=== PATIENT | male | born 1960 | race Caucasian/White ===

== ENCOUNTER 2025-01-18 20:29 | Inpatient (IN) | payer BC ==
[2025-01-18 21:34] VITALS: BMI 21.6
[2025-01-18] MEDS ORDERED: ONDANSETRON 4 MG/2 ML VIAL IV PRN (22:03)
[2025-01-18] MEDS ORDERED: ACETAMINOPHEN 325 MG TABLET PO PRN (22:03)
--- NOTE | 2025-01-18 22:03 | P.HP ---
Certification for Inpatient Patient admitted to: Inpatient With expected LOS: >2 Midnights Patient will require the following post-hospital care: None Practitioner: I am a practitioner with admitting privileges, knowledge of patient current condition, hospital course, and medical plan of care. Services: Services provided to patient in accordance with Admission requirements found in Title 42 Section 412.3 of the Code of Federal Regulations <Nomi Michele - Last Filed: 01/19/25 08:20> Patient History Date of Service: 01/18/25 Reason for admission: Acute appendicitis History of Present Illness: Patient is a pleasant [id number] male with past medical history of essential hypertension, BPH, hypercholesterolemia, transferred from [facility] with acute appendicitis, and the plan is to have surgery in the morning to be done by . Patient states he woke up about 5:30 in the morning and went to work, and states around 9:30 AM he started having severe abdominal pain located mostly right lower quadrant of his abdomen. He states he went home around 1:30 p.m., states the pain progressively worsened which he describes as sharp, constant, with the pain scale 10/10. States since the pain was not getting relief, he then went to the ER. Patient denies of any fever, chills, chest pain, shortness of breath. Dr. Davis was consulted and notified, the plan is to have surgery in the morning. Patient in no acute distress this time. - Past Medical/Surgical History -: Essential hypertension. -: BPH. -: Hypercholesteremia. -: Bilateral rotator cuff repair. -: Laminectomy. - Family History Mother -: Heart disease Father -: Hypertension, Stroke - Social History Smoking Status: Current every day smoker (Patient states he deep snuff) Alcohol use: Yes CD- Drugs: No Caffeine use: No Place of Residence: Home <Nomi Michele - Last Filed: 01/19/25 08:20> Date of Service: 01/18/25 <Luis Enrique Black - Last Filed: 01/20/25 00:49> Allergies lactated Ringers Allergy (Unknown, Uncoded 01/18/25 21:32) Hives Home Medications: Aspirin 81 mg PO DAILY 01/19/25 Losartan Potassium 1 tab PO DAILY 01/19/25 Rosuvastatin [Crestor*] 1 tab PO DAILY 01/19/25 Tamsulosin [Flomax*] 1 cap PO BEDTIME 01/19/25 tadalafiL [Cialis] 1 tab PO DAILY 01/19/25 Review of Systems 10-point ROS is otherwise unremarkable Gastrointestinal: Nausea, Vomiting, Abdominal Pain <Nomi Michele - Last Filed: 01/19/25 08:20> Physical Examination - Vital Signs Temperature: 98 F Blood Pressure: 159/72 Pulse: 67 Respirations: 18 Pulse Ox (%): 97 - Physical Exam General: Alert, Oriented x3, Cooperative, Cachectic HEENT: Atraumatic, Normocephalic, PERRLA, Mucous membr. moist/pink, Sclerae nonicteric Neck: Supple, 2+ carotid pulse no bruit, No LAD, Without JVD or thyroid abnormality Respiratory: Clear to auscultation bilaterally, Normal air movement Cardiovascular: No edema, Normal pulses, Regular rate/rhythm, Normal S1 S2, Abnormal S3, No gallops, No rubs, No murmurs Capillary refill: <2 Seconds Gastrointestinal: Normal bowel sounds, No ascites, No masses, Tenderness, Guarding Musculoskeletal: No clubbing, No swelling, No contractures, No erythema, No tenderness, No warmth Integumentary: No rashes, No breakdown, No significant lesion, No tenderness/swelling, No erythema, No warmth, No cyanosis Neurological: Normal gait, Normal speech, Normal strength at 5/5 x4 extr, Normal tone, Sensation intact, Cranial nerves 3-12 intact, Normal reflexes 2+, Normal affect Lymphatics: No axilla or inguinal lymphadenopathy Urinary: Other (BPH.) <Nomi Michele - Last Filed: 01/19/25 08:20> - Studies Laboratory Data (last 24 hrs) 01/19/25 01/19/25 05:02 05:02 WBC 7.20 Hgb 13.1 L Hct 38.4 L Plt Count 238 Sodium 135 L Potassium 4.4 BUN 7 Creatinine 0.93 Glucose 127 H Total Bilirubin 0.9 AST 17 ALT 25 Alkaline Phosphatase 37 L <LuisE nrique Black - Last Filed: 01/20/25 00:49> Male Exam - Male Exam Inguinal exam: No hernias <Nomi Michele - Last Filed: 01/19/25 08:20> Assessment and Plan - Plan Patient admitted with acute appendicitis, scheduled for surgery in a.m. (1)Acute appendicitis. -N.p.o. after midnight. -Zosyn 3.375 mg IV every 8 hours. -Zofran 4 mg as needed every 6 hours. -D5 NS at 100 mL/ hr - Morphine 4 mg IV as needed every 4 hours. -Consulr Dr. Davis. (2) DVT prophylaxis. -SCD at this time since patient is scheduled for surgery in the morning. (3) chronic BPH. -Continue tamsulosin 0.4 mg p.o. daily. (4)chronic essential hypertension. -Patient blood pressure medication to be resumed after reconciliation is complete. (4)Explained the entire treatment plan to the patient, solicit questions answered voiced understanding. Discharge Plan: Home Plan to discharge in: 72 Hours - Advance Directives Does patient have a Living Will: No Does patient have a Durable POA for Healthcare: No - Code Status/Comfort Care Code Status Assessed: Yes Code Status: Full Code Critical Care: No Time Spent Managing Pts Care (In Minutes): 55 <Nomi Michele - Last Filed: 01/19/25 08:20> Date of Service: 01/18/25 Patient was seen and examined. Events of the last 24 hours have been noted. Spoke with with CHINYERE regarding patient's clinical picture after evaluating and examining the patient independently. I performed a substantial part of the MDM during this patient's care today. I personally made or approved the documented management plan and acknowledge its risk of complications. I agree with the findings and documentation provided in the CHINYERE's notes. Patient is scheduled for appendectomy and anticipate discharge postoperatively per general surgery recommendation. <Luis Enrique Black - Last Filed: 01/20/25 00:49>
[2025-01-18] MEDS: MORPHINE 4 MG/ML SYR IV ONE (22:09)
[2025-01-18] MEDS: TAMSULOSIN 0.4 MG SR CAP PO SCH (22:36)
[2025-01-18] MEDS: D5 0.45 NS 1,000 ML IV SCH (22:56)
[2025-01-19] MEDS: PIPER TAZO 3.375 GM in NA CHLORIDE 0.9% 100 ML IV SCH (00:48)
[2025-01-19] MEDS: MORPHINE 4 MG/ML SYR IV PRN (02:35)
[2025-01-19 05:18] LABS: Absolute Lymphocytes (CBC) 1.5 K/uL (0.7-4.9); Hematocrit 38.4 % (39.6-49.0); Hemoglobin 13.1 g/dL (13.6-17.9); MCH 32.2 pg (27.0-35.0); MCHC 34.2 g/dL (32.0-36.0); MCV 94.3 fL (80-100); MPV 6.9 fL (7.6-11.3); Nucleated RBC Absolute Count 0.0 (0-0); Nucleated Red Blood Cells % 0.0 % (0-0); RBC Red Blood Cell Count 4.07 M/uL (4.33-5.43); White Blood Count 7.20 thou/uL (4.3-10.9)
[2025-01-19 05:36] LABS: ALT/SGPT 25.0 U/L (16-61); AST/SGOT 17.0 U/L (15-37); Albumin 3.5 g/dL (3.4-5.0); Albumin/Globulin Ratio 1.4 (1.1-1.8); Alkaline Phosphatase 37.0 U/L (45-117); Anion Gap 7.4 mEq/L (5.0-15.0); BUN Blood Urea Nitrogen 7.0 mg/dL (7-18); Globulin 2.5 g/dL (2.3-3.5); Glucose Level 127.0 mg/dL (74-106); Potassium 4.4 mEq/L (3.5-5.1)
[2025-01-19] MEDS: NA CHLORIDE 0.9% 1,000 ML ONE (06:10)
[2025-01-19] MEDS ORDERED: MIDAZOLAM HCL 2 MG/2 ML INJ ONE (06:21)
[2025-01-19] MEDS ORDERED: ONDANSETRON 4 MG/2 ML VIAL ONE (06:21)
[2025-01-19] MEDS ORDERED: ROCURONIUM 50 MG/5 ML VIAL IV ONE (06:21)
[2025-01-19] MEDS ORDERED: LIDOCAINE 1% MPF 5 ML VIAL ONE (06:21)
[2025-01-19] MEDS ORDERED: FENTANYL CITR 100 MCG/2 ML ONE (06:21)
--- NOTE | 2025-01-19 06:22 | P.CNS ---
Date of Consult: 01/19/25 Reason for consult: Abdominal pain History of present illness: Patient is a 64-year-old gentleman who presents to us with approximately 1 day history of diffuse abdominal pain localizing to the right lower quadrant. Patient had 3 episodes of diarrhea at the onset. Patient denies any sore throat, runny nose, cough, headaches or dizziness, no chest pain no fever chills. Pain is constant in nature. Review of systems: Otherwise unremarkable Past medical history: Hypertension Past surgical history: Shoulder surgery Allergies: Lactated Ringer Social history: Patient dips tobacco and drinks occasionally Family history: Noncontributory Vital signs: Stable, afebrile Physical exam: Awake, alert and oriented x 3 Head and neck exam: No neck masses, no JVD, throat clear and neck supple Chest: Clear Heart: S1-S2 Abdomen: Soft, nondistended, positive bowel sound, right lower quadrant tenderness with rebound Extremity: Neurovascular intact Neuro: Nonfocal Diagnostic data: Laboratory data and CAT scan reviewed Assessment: Acute appendicitis Plan/recommendation: Admit, n.p.o., IV fluids, IV antibiotics and to the OR for laparoscopic appendectomy possible open. Patient understands risk, benefits and alternatives and agrees to procedure. CC:
[2025-01-19] MEDS ORDERED: EPHEDRINE SULF 50 MG/ML VIAL ONE (06:43)
[2025-01-19] MEDS: BUPIVACAINE 0.5% PF 10 ML VIAL ONE (06:55)
[2025-01-19] MEDS ORDERED: Mastisol Adhesive Liq ONE (07:04)
[2025-01-19] MEDS ORDERED: NEOSTIGMINE 1 MG/ML -10 ML VIAL ONE (07:10)
[2025-01-19] MEDS ORDERED: GLYCOPYRROLATE 0.2 MG/ML SYR ONE ×2 (07:10→07:18)
--- NOTE | 2025-01-19 07:42 | P.OP ---
Date of Service: 01/19/25 Preop diagnosis: Acute appendicitis Postop diagnosis: Same Procedure performed: Laparoscopic appendectomy Surgeon: Jasvir Davis MD Video Producer: Amanda VERNON Estimated blood loss: Minimal Specimen: Appendix Findings: As above Anesthesia: General Complications: None Drains: None Fluids and blood products: Nonapplicable Disposition: Recovery room Operative note: Patient brought to the OR and placed in supine position. General anesthesia began. Patient prepped and draped in the usual sterile fashion. Marcaine 0.5% infiltrated locally. 15 blade used to make a 1 cm supraumbilical midline incision. Subcutaneous tissue divided fascia and bleeding controlled with cautery. Fascia identified and divided. #1 Vicryl stay suture placed. Peritoneal cavity entered with sharp and blunt dissection. 12 mm trocar placed into the peritoneal cavity under direct vision. Pneumoperitoneum established. Two 5 mm trocars placed under direct vision. 1 trocar placed in the suprapubic region and the other in the left lower quadrant. Laparoscopy revealed acute suppurative appendicitis. Base of the appendix and mesoappendix clearly identified with sharp and blunt dissection. LigaSure used to divide the mesoappendix. Endo ROM stapling device used to divide the base of the appendix on the cecum. The appendix retrieved through the umbilicus via Endo Catch bag. Right lower quadrant and pelvis examined carefully. And no evidence of bleeding or bile leakage was appreciated. All trocars were removed under direct vision. Stay sutures were tied to each other to reapproximate the fascial defect. Subcu was was irrigated and bleeding controlled with cautery. 3-0 chromic used to approximate subcutaneous tissue and closed skin. Sterile dressing applied. Patient awakened and taken to recovery room in good general condition. CC:
[2025-01-19] MEDS ORDERED: PNEUMOCOCCAL VACCINE 0.5 ML IMVAC ONE (08:00)
[2025-01-19] MEDS: HYDROCODONE/APAP 7.5/325 MG TAB PO PRN (08:58)
[2025-01-20] MEDS: HYDROMORPHONE HCL 1 MG/ML INJ IV PRN (00:31)
--- NOTE | 2025-01-20 00:59 | P.PN ---
Date of Service: 01/19/25 Subjective Patient clinically doing well and patient denies any complaints. Clinical symptoms are stable. Physical Examination - Vital Signs Reviewed - Physical Exam General: Alert, Oriented x3, Cooperative, Cachectic Respiratory: Clear to auscultation bilaterally, Normal air movement Cardiovascular: No edema, Normal pulses, Regular rate/rhythm, Normal S1 S2, No murmurs Gastrointestinal: Normal bowel sounds, No ascites, No masses, Tenderness, Guarding Musculoskeletal: No clubbing, No swelling, No contractures, No erythema, No tenderness, No warmth Integumentary: No rashes, No breakdown, No significant lesion, No tenderness/swelling, No erythema, No warmth, No cyanosis Neurological: No focal deficits Assessment and Plan - Plan Patient admitted with acute appendicitis, scheduled for surgery in a.m. (1) Acute appendicitis. - Patient status post laparoscopic cholecystectomy. Continue with IV antibiotic therapy and pain control. Anticipate discharge in a.m. (2) chronic BPH. -Continue tamsulosin 0.4 mg p.o. daily. (3)chronic essential hypertension. -Patient blood pressure medication to be resumed after reconciliation is complete. Discharge Plan: Home Plan to discharge in: 24 Hours - Advance Directives Does patient have a Living Will: No Does patient have a Durable POA for Healthcare: No - Code Status/Comfort Care Code Status Assessed: Yes Code Status: Full Code Critical Care: No Time Spent Managing Pts Care (In Minutes): 30
[2025-01-20 04:30] LABS: Absolute Lymphocytes (CBC) 1.4 K/uL (0.7-4.9); Hematocrit 35.1 % (39.6-49.0); Hemoglobin 12.0 g/dL (13.6-17.9); MCH 32.5 pg (27.0-35.0); MCHC 34.1 g/dL (32.0-36.0); MCV 95.3 fL (80-100); MPV 6.9 fL (7.6-11.3); Nucleated RBC Absolute Count 0.0 (0-0); Nucleated Red Blood Cells % 0.0 % (0-0); RBC Red Blood Cell Count 3.69 M/uL (4.33-5.43); White Blood Count 4.80 thou/uL (4.3-10.9)
[2025-01-20 04:44] LABS: ALT/SGPT 15.0 U/L (16-61); AST/SGOT 14.0 U/L (15-37); Albumin 3.0 g/dL (3.4-5.0); Albumin/Globulin Ratio 1.2 (1.1-1.8); Alkaline Phosphatase 26.0 U/L (45-117); Anion Gap 6.9 mEq/L (5.0-15.0); BUN Blood Urea Nitrogen 4.0 mg/dL (7-18); Globulin 2.5 g/dL (2.3-3.5); Glucose Level 129.0 mg/dL (74-106); Potassium 3.9 mEq/L (3.5-5.1)
[2025-01-20] MEDS: POTASSIUM CL SA 10 MEQ TAB PO ONE (07:18)
--- NOTE | 2025-01-20 11:42 | PN ---
Date of Progress Note: 01/20/2025 Subjective: The patient is awake, alert. No complaint. Objective: Vital Signs: Stable, afebrile. Abdomen: Benign. Laboratory Data: White count is normal. Assessment: Status post laparoscopic appendectomy. Recommendation: The patient was cleared from Surgery for discharge. Discharge instructions given. The patient will follow up with me in my office next week. CLAUS/CHINO Voice ID: [id number] Report ID: [id number]
--- NOTE | 2025-01-20 12:04 | P.DS ---
Admission Date: 01/18/25 Discharge Date: 01/20/25 Reason for Admission: Acute appendicitis Brief History of Present Illness: Diagnosis Acute appendicitis BPH Hypertension HPI 01/18/2025 Patient is a pleasant [id number] male with past medical history of essential hypertension, BPH, hypercholesterolemia, transferred from [facility] with acute appendicitis, and the plan is to have surgery in the morning to be done by . Patient states he woke up about 5:30 in the morning and went to work, and states around 9:30 AM he started having severe abdominal pain located mostly right lower quadrant of his abdomen. He states he went home around 1:30 p.m., states the pain progressively worsened which he describes as sharp, constant, with the pain scale 10/10. States since the pain was not getting relief, he then went to the ER. Patient denies of any fever, chills, chest pain, shortness of breath. Dr. Davis was consulted and notified, the plan is to have surgery in the morning. Patient in no acute distress this time. Hospital Course: Javier was admitted and treated for acute appendicitis. He was transferred from [facility] for surgery. Dr. Davis was consulted and he tolerated surgery on 01/19/2025. Javeir was seen on morning rounds hemodynamically stable, reports flatulence but no BM, able to ambulate independently and urinate without difficulty. Dr. Davis is cleared him for discharge with follow-up to his office in 1 week. Flomax, tramadol, Augmentin were prescribed. Physical Exam General: Alert, Oriented x3, afebrile Respiratory: Clear BBS, Normal air movement Cardiovascular: RRR, Normal S1 S2, No murmurs Gastrointestinal: Normal bowel sounds, surgical incision approximated Musculoskeletal: No clubbing Integumentary: No rashes Neurological: No focal deficits <Donna Cabrales - Last Filed: 01/20/25 21:04> Admission Date: 01/18/25 Discharge Date: 01/21/25 <Karri Rodriguez - Last Filed: 01/21/25 06:31> Disposition: ROUTINE DISCHARGE Discharge Condition: GOOD Vital Signs/Physical Exam: Temp Pulse Resp BP Pulse Ox 98.3 F 67 18 140/71 100 01/20/25 08:00 01/20/25 08:00 01/20/25 08:18 01/20/25 08:00 01/20/25 08:18 Laboratory Data at Discharge: WBC 4.80 thou/uL (4.3-10.9) 01/20/25 04:03 Hgb 12.0 g/dL (13.6-17.9) L D 01/20/25 04:03 Hct 35.1 % (39.6-49.0) L 01/20/25 04:03 Plt Count 217 thou/uL (152-406) 01/20/25 04:03 Sodium 138 mEq/L (136-145) 01/20/25 04:03 Potassium 3.9 mEq/L (3.5-5.1) 01/20/25 04:03 BUN 4 mg/dL (7-18) L 01/20/25 04:03 Creatinine 0.86 mg/dL (0.70-1.30) 01/20/25 04:03 Glucose 129 mg/dL (74-106) H 01/20/25 04:03 Magnesium 2.0 mg/dL (1.6-2.4) 01/18/25 22:50 Total Bilirubin 0.4 mg/dL (0.2-1.0) 01/20/25 04:03 AST 14 U/L (15-37) L 01/20/25 04:03 ALT 15 U/L (16-61) L 01/20/25 04:03 Alkaline Phosphatase 26 U/L (45-117) L D 01/20/25 04:03 <Donna Cabrales - Last Filed: 01/20/25 21:04> Vital Signs/Physical Exam: Temp Pulse Resp BP Pulse Ox 97.8 F 60 18 146/82 H 100 01/20/25 12:00 01/20/25 12:00 01/20/25 12:30 01/20/25 12:00 01/20/25 12:30 Laboratory Data at Discharge: WBC 4.80 thou/uL (4.3-10.9) 01/20/25 04:03 Hgb 12.0 g/dL (13.6-17.9) L D 01/20/25 04:03 Hct 35.1 % (39.6-49.0) L 01/20/25 04:03 Plt Count 217 thou/uL (152-406) 01/20/25 04:03 Sodium 138 mEq/L (136-145) 01/20/25 04:03 Potassium 3.9 mEq/L (3.5-5.1) 01/20/25 04:03 BUN 4 mg/dL (7-18) L 01/20/25 04:03 Creatinine 0.86 mg/dL (0.70-1.30) 01/20/25 04:03 Glucose 129 mg/dL (74-106) H 01/20/25 04:03 Magnesium 2.0 mg/dL (1.6-2.4) 01/18/25 22:50 Total Bilirubin 0.4 mg/dL (0.2-1.0) 01/20/25 04:03 AST 14 U/L (15-37) L 01/20/25 04:03 ALT 15 U/L (16-61) L 01/20/25 04:03 Alkaline Phosphatase 26 U/L (45-117) L D 01/20/25 04:03 <Karri Rodriguez - Last Filed: 01/21/25 06:31> Diet: Regular Activity: No lifting more than 10 lbs <Donna Cabrales - Last Filed: 01/20/25 21:04> Physician Review: Patient Assessed, Agree with Above Assessment and Plan <Karri Rodriguez - Last Filed: 01/21/25 06:31> Home Medications: Aspirin 81 mg PO DAILY 01/19/25 Losartan Potassium 1 tab PO DAILY 01/19/25 Rosuvastatin [Crestor*] 1 tab PO DAILY 01/19/25 Tamsulosin [Flomax*] 1 cap PO BEDTIME 01/19/25 tadalafiL [Cialis] 1 tab PO DAILY 01/19/25 Amox/Clavulanate [Augmentin 875-125 Tab] 875 mg PO BID 5 Days #10 tab 01/20/25 Tamsulosin [Flomax*] 0.4 mg PO BEDTIME 30 Days #30 cap 01/20/25 traMADol HCL [Ultram*] 50 mg PO Q6H PRN 5 Days #15 tab 01/20/25 New Medications: Amox/Clavulanate [Augmentin 875-125 Tab] 875 mg PO BID 5 Days #10 tab Tamsulosin [Flomax*] 0.4 mg PO BEDTIME 30 Days #30 cap traMADol HCL [Ultram*] 50 mg PO Q6H PRN 5 Days #15 tab PRN Reason: Pain Physician Discharge Instructions: Patient may go home Patient may shower Remove outer dressing in a.m. Keep Steri-Strips on at all times Resume home meds and diet Activity as tolerated, no heavy lifting or strenuous exercise Follow-up my office 1 week, call for appointment Antibiotics and pain medicine per the hospitalist team Incentive spirometry as instructed Followup: NONE,NONE [Primary Care Provider] - 1-2 Weeks (Call for appointment.) Jasvir Davis MD [ACTIVE - CAN ADMIT] - 1 Week (Call for appointment.)
[2025-01-20 12:20] VITALS: BP 146/82; TEMP 97.8
[2025-01-20 14:15] VITALS: O2SAT 100
== END 2025-01-20 12:34 | disposition home or self-care (01) | DRG 398 ==
LOC: 4TH 20:29
PROVIDERS: ADMIT Hospitalist; ATTEND Family Medicine
PROC: 0DTJ4ZZ Resection of Appendix, Percutaneous Endoscopic Approach (ICD-10-PCS; principal; 2025-01-19 06:30)
DX: K37 Unspecified appendicitis (principal); R64 Cachexia; I10 Essential (primary) hypertension; E78.00 Pure hypercholesterolemia, unspecified; N40.0 Benign prostatic hyperplasia without lower urinary tract symptoms; F17.200 Nicotine dependence, unspecified, uncomplicated; Z79.82 Long term (current) use of aspirin; Z68.21 Body mass index [BMI] 21.0-21.9, adult; Z79.899 Other long term (current) drug therapy
CPT/HCPCS: 36415; 80053; 83735; 85025; 88304; 94010; J1171; J2003; J2250; J2405; J2543; J2704; J2710; J3010; J7030; J7799

== ENCOUNTER 2025-03-31 07:06 | Day surgery (SDC) | payer BC ==
[2025-03-29 13:56] LABS: Absolute Lymphocytes (CBC) 1.0 K/uL (0.7-4.9); Hematocrit 43.6 % (39.6-49.0); Hemoglobin 14.7 g/dL (13.6-17.9); MCH 31.7 pg (27.0-35.0); MCHC 33.7 g/dL (32.0-36.0); MCV 94.2 fL (80-100); MPV 7.0 fL (7.6-11.3); Nucleated RBC Absolute Count 0.0 (0-0); Nucleated Red Blood Cells % 0.0 % (0-0); RBC Red Blood Cell Count 4.62 M/uL (4.33-5.43); White Blood Count 4.20 thou/uL (4.3-10.9)
[2025-03-29 14:39] LABS: Anion Gap 9.7 mEq/L (5.0-15.0); BUN Blood Urea Nitrogen 6.0 mg/dL (7-18); Glucose Level 124.0 mg/dL (74-106); Potassium 3.7 mEq/L (3.5-5.1)
--- NOTE | 2025-03-29 18:34 | RAD REPORT ---
EXAMINATION: TWO VIEW CHEST XR CLINICAL INDICATION: Male, 64 years old. Hypertension. Pre-op pending colonoscopy TECHNIQUE: 2 view radiographs of the chest were performed. COMPARISON: No prior exam. FINDINGS: The lungs are well inflated and clear. No pneumothorax or sizable effusion. The heart is normal in si ze. Mediastinal contours are unremarkable. IMPRESSION: No acute or significant abnormalities.
[2025-03-31] MEDS ORDERED: LIDOCAINE 1% MPF 5 ML VIAL ONE (08:07)
[2025-03-31] MEDS: NA CHLORIDE 0.9% 1,000 ML ONE (08:41)
[2025-03-31 10:00] VITALS: TEMP 98
[2025-03-31 10:02] VITALS: BP 133/66; O2SAT 100
--- NOTE | 2025-03-31 23:19 | OP ---
Surgeon: Jasvir Davis MD Please note, Endo PIOON in endoscopy suite is not working. Therefore, I am dictating this note for colonoscopy with polypectomy utilizing the phone dictation system. Preoperative Diagnosis: History of polyposis. Postoperative Diagnosis: History of polyposis and hemorhoids. Procedure Performed: Colonoscopy with polypectomy. Estimated Blood Loss: Minimal. Specimen: Descending colon small polyp. Findings: As above. Anesthesia: MAC. Complications: None. Condition: The patient tolerated the procedure in stable condition, taken back to Day Surgery in good general condition. Description Of Procedure: The patient was brought to the OR, placed in the supine position. MAC anesthesia begun. The patient was placed in the left lateral position. Digital rectal exam did not reveal any evidence of disease. Then, the colonoscope under direct vision advanced all the way to the cecum as identified by the ileocecal valve and palpation in the right lower quadrant. The findings are as follows, normal cecum, normal ascending colon, normal transverse colon. In the mid descending colon, there was a small round polyp which was taken out by hot biopsy and sent to pathology as specimen. There was no evidence of bleeding noted. The scope was withdrawn. There was no other evidence of disease seen and with retroflexion, there was some internal hemorrhoids, but they were very small. Scope withdrawn. The patient was awakened. Withdrawal time was approximately 8 minutes. The patient tolerated the procedure in stable condition and taken back to Day Surgery in good general condition. Disposition: Home. Condition: Stable. Discharge Instructions: Resume home medications and diet. Activity as tolerated. Follow up in my office in 1 week. /MODL Voice ID: [id number] Report ID: [id number] PAULA
== END 2025-03-31 09:58 | disposition home or self-care (01) ==
LOC: OR 07:06
PROVIDERS: ATTEND Surgery
PROC: 0DBM8ZX Excision of Descending Colon, Via Natural or Artificial Opening Endoscopic, Diagnostic (ICD-10-PCS; principal; 2025-03-31 08:30)
DX: Z12.11 Encounter for screening for malignant neoplasm of colon (principal); Z86.0100 Personal history of colon polyps, unspecified; K63.5 Polyp of colon
CPT/HCPCS: 93005; 85025; 80048; 36415; 88305; 71046; 45384; J2704; J2003; J7030